=== PATIENT | male | born 1950 | race Caucasian/White ===

== ENCOUNTER 2017-12-12 09:12 | Emergency (ER) | payer MEDICARE, BC ==
--- NOTE | 2017-12-12 10:03 | RAD ---
Indication: Right knee pain and injury. 4 views of the right knee demonstrates no fracture. Soft tissue swelling superficial to the patella is noted consistent with superficial patellar bursitis. Calcification is noted superficial to the patella. IMPRESSION: Likely soft tissue swelling superficial to the patella consistent with superficial patellar bursitis.
--- NOTE | 2017-12-12 10:20 | ED ---
Lower Extremity - HPI Summary HPI Summary: 67 male presents to ED with complaints of right knee pain and difficulty lifting right lower extremity after a fall the he sustained just JIG [employer]PER[employer] while out walking to his barn. States he slipped and fell and his knee was bent and twisted behind him. States he heard a pop. Has since had pain with weight bearing and a deformity noted on top of knee. Denies any significant pain when at rest. Has not taken any medications. Has had previous injury in the past 30+ years to the same knee. Denies any bruising. Denies PMHx other than HTN. No other back, neck or other extremity pain. Did not hit head. NO back or neck pain. - History of Current Complaint Chief Complaint: EDExtremityLower Stated Complaint: FALL Time Seen by Provider: 12/12/17 09:19 Hx Obtained From: Patient Mechanism Of Injury: Fall From A Standing Position, Twisted Onset of Pain: Immediate, Post Accident Onset/Duration: Still Present Severity Initially: Moderate Severity Currently: Moderate Pain Intensity: 9 Pain Scale Used: 0-10 Numeric Timing: Constant Location: Is Discrete @ - right knee Character Of Pain: Aching, Spasmodic, Unable To Describe Associated Signs And Symptoms: Positive: Swelling - "Deformity", Knee Pain - right Aggravating Factor(s): Standing, Ambulation, Weight Bearing Alleviating Factor(s): Rest Able to Bear Weight: No - not without weakness and pain Legs: 1 - pain and deformity - Allergies/Home Medications Allergies/Adverse Reactions: Allergies Allergy/AdvReac Type Severity Reaction Status Date / Time No Known Allergies Allergy Verified 07/21/17 12:59 PMH/Surg Hx/FS Hx/Imm Hx Endocrine/Hematology History: Denies: Hx Diabetes Cardiovascular History: Reports: Hx Hypertension Denies: Hx Pacemaker/ICD Respiratory History: Denies: Hx Asthma Sensory History: Denies: Hx Hearing Aid Psychiatric History: Denies: Hx Panic Disorder - Cancer History Cancer Type, Location and Year: PROSTATE - Surgical History Surgery Procedure, Year, and Place: n/a - Immunization History Immunizations Up to Date: Yes Infectious Disease History: No Infectious Disease History: Denies: Traveled Outside the [place] in Last 30 Days - Family History Known Family History: Positive: Hypertension - Social History Alcohol Use: None Substance Use Type: Reports: None Smoking Status (MU): Unknown if Ever Smoked Review of Systems Constitutional: Negative Cardiovascular: Negative Respiratory: Negative Positive: Arthralgia, Myalgia, Decreased ROM Skin: Negative Positive: Weakness - when lifting right lower extremity All Other Systems Reviewed And Are Negative: Yes Physical Exam Triage Information Reviewed: Yes Vital Signs On Initial Exam: Initial Vitals Temp Pulse Resp BP Pulse Ox 98 F 55 16 157/110 97 12/12/17 09:16 12/12/17 09:16 12/12/17 09:16 12/12/17 09:16 12/12/17 09:16 elevated BP noted, improved throughout stay Vital Signs Reviewed: Yes Appearance: Positive: Well-Appearing, No Pain Distress, Well-Nourished Skin: Positive: Warm, Skin Color Reflects Adequate Perfusion, Dry. Negative: Cold, Numb, Diaphoretic, Pale, Cold Injury Head/Face: Positive: Normal Head/Face Inspection Eyes: Positive: Normal Neck: Positive: Supple, Nontender Respiratory/Lung Sounds: Positive: Clear to Auscultation, Breath Sounds Present. Negative: Rales, Rhonchi, Wheezes Cardiovascular: Positive: Normal, RRR, Pulses are Symmetrical in both Upper and Lower Extremities. Negative: Murmur, Rub Abdomen Description: Positive: Nontender, Soft Musculoskeletal: Positive: Interruption @ - superior aspect of patella, Abnormal @ - with flexion of right lower extremity at hip, with deformity noted at superior aspect of right patella, indentation noted strength slightly diminished at quadricep of right LE, Pain @ - minimal when at rest, increases with ambulation/weight bearing of right knee, Other - deformity noted at superior aspect of patella with indentation and patella is not fully stabilized when palpated, although is intact and is not dislocated. no obvious edema or bruising. rest of MSK exam normal and without injury. strength/rom intact rest of MSK. Neurological: Positive: Normal, Sensory/Motor Intact, Alert, Oriented to Person Place, Time, Unable to Assess Gait - due to injury Diagnostics - Vital Signs Vital Signs Temp Pulse Resp BP Pulse Ox 12/12/17 09:16 98 F 55 16 157/110 97 - Laboratory Lab Statement: Any lab studies that have been ordered have been reviewed, and results considered in the medical decision making process. - Radiology right knee Xray Interpretation: Positive (See Comments) - Likely soft tissue swelling superficial to the patella consistent with superficial patellar bursitis. Radiology Interpretation Completed By: Radiologist - CT right knee CT Interpretation: Positive (See Comments) - No definite fracture is identified. Calcification along the quadriceps tendon and infrapatellar tendon are intact. There is suggestion of a tear of the quadriceps tendon near its patellar attachment age of which is undetermined. No definite joint effusion is noted. CT Interpretation Completed By: Radiologist Re-Evaluation - Re-Evaluation First Eval Re-Evaluation Time: 11:15 Change: Unchanged - still feeling fine, does not want pain managment Second Eval Re-Evaluation Time: 12:37 Change: Unchanged - still feels fine. updated on plan after consult wt Dr Padilla. ready to be d/c Lower Extremity Course/Dx - Course Course Of Treatment: xray and Ct obained showing probable quadricep tendon rupture and based on physical exam. Patient was not in any significant pain and did not want medication at this time. Attempted to consult Dr Padilla at 11: 10am returned and came up to consult patient in ED at 12:00pm. Patient given knee immobilizer and crutches. RICE and NSAID's, muscle relaxer. Follow up with Ortho. Aware of worsening signs and symptoms to watch out for. No other concerns at this time. - Diagnoses Differential Diagnosis/HQI/PQRI: Positive: Dislocation, Fracture (Closed), Sprain, Strain, Other - tendon rupture, quadricep tear Provider Diagnoses: Rupture of right quadriceps tendon - Physician Notifications Discussed Care Of Patient With: Dr Padilla Time Discussed With Above Provider: 11:15 Instructed by Provider To: Will See In ED - attempted to go to surgery today , however unable so will follow up in office with Dr Padilla on Friday Discharge - Discharge Plan Condition: Good Disposition: HOME Prescriptions: Cyclobenzaprine TAB* [Flexeril 10 MG TAB*] 5 mg PO BEDTIME PRN #6 tab PRN Reason: Spasms Patient Education Materials: Knee Immobilizer (ED), Tendon Repair (DC) Referrals: Yolanda Carrion MD [Primary Care Provider] - Kentrell Padilla MD [Medical Doctor] - Additional Instructions: Please follow up with Orthopedics for further evaluation and treatment, call to make an appointment. Keep knee immobilizer on and use crutches. Refrain from weight bearing. Recommend use of ibuprofen for pain and inflammation. Muscle relaxers as needed for any spasms. Follow up with PCP as well. Any new or worsening symptoms please seek medical attention promptly.
--- NOTE | 2017-12-12 11:10 | RAD ---
Indication: Right knee injury, on ability to where bear weight. CT of the right knee was obtained in the axial plane. Coronal and sagittal reconstructed images were obtained. The distal femur and proximal tibia demonstrates no evidence of fracture. The patella demonstrates no fracture. There is dense calcification superficial to the patella which is well-corticated and likely represents sequela of old injury. Small calcifications are noted in the superficial soft tissues. There is discontinuity of the quadriceps tendon to the superior aspect of the patella. There is some small focus of air in the soft tissue just adjacent to the patella. The possibility of a quadriceps tendon tear should be considered. Infrapatellar tendon is intact. No significant joint effusion is noted although soft tissue swelling is noted superficial to the patella. IMPRESSION: No definite fracture is identified. Calcification along the quadriceps tendon and infrapatellar tendon are intact. There is suggestion of a tear of the quadriceps tendon near its patellar attachment age of which is undetermined. No definite joint effusion is noted.
[2017-12-12 12:56] VITALS: BP 135/84
--- NOTE | 2017-12-12 21:32 | CONS ---
CONSULTATION REPORT: DATE OF CONSULT: 12/12/17 REASON FOR CONSULT: Right knee injury. 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 The patient was outside at 9 a.m., he slipped and fell. The patient states that his right lower extremity went under his left lower extremity. The patient fell to the ground. He could not stand up on his own. His knee was not stable at all. Eventually, the patient's helped him into a car and the patient was brought by automobile to the ER at [facility]. The patient has no prior history of pain of that right knee. He does do some work on his knees. PAST MEDICAL HISTORY: Hypertension, prostate cancer. PAST SURGICAL HISTORY: None. MEDICATIONS: 1. Diuretic, name unknown by patient. 2. Calcium channel nba, name unknown by patient. The patient is not aware of the names. ALLERGIES: No known drug allergies. SOCIAL HISTORY: The patient does not smoke tobacco. PRIMARY CARE PHYSICIAN: Dr. Carrion in [place]. REVIEW OF SYSTEMS: No headache, nausea, vomiting, chest pain, heart palpitations, or shortness of breath. No abdominal pain. No right lower extremity numbness or tingling. No other joint pain. No other injuries sustained in the fall. PHYSICAL EXAM: Vital Signs: At 12:57 p.m. on 12/12/17 are temperature 100.1 degrees Fahrenheit, pulse 101, blood pressure 135/84, oxygen saturation 96% on room air. No acute distress, alert, and oriented, appropriate mood and affect, appropriate dress and hygiene, well coordinated bilateral upper and lower extremities. Right knee exam shows some prominence of the prepatellar bursa and some clear callus overlying into. There is a minimal amount of soft tissue swelling about the prepatellar bursa. There is more soft tissue swelling centered about the proximal pole of his patella. No ecchymosis. No skin compromise. Palpation of the distal quadriceps tendon and the patella reveals a clear full- thickness defect in the quadriceps tendon just prior to its insertion site. I can palpate from skin directly to quadriceps indicating a clear significant defect of tendon. The patient has no ability to do a straight leg raise or to actively extend the knee. Neurovascularly, intact distally. Only minimal tenderness to palpation about the distal end of the quadriceps tendon. DIAGNOSTIC STUDIES: Imaging: I reviewed x-rays of the patient's right knee obtained in the emergency department. They demonstrate no fracture. There was a calcification or bone fragment, present just superficial to the distal end of the patella, likely calcification consistent with long time prepatellar bursitis. CT scan of the right knee obtained also on the day of consultation reveals clear full-thickness tear in the quadriceps tendon with some minimal retraction and small calcification superficial of the patella. ASSESSMENT: Right distal quadriceps tendon tear, rupture. PLAN: 1. Discussed with the patient and his , recommended surgical management and timing of recovery. We also discussed some technical details of the operation. 2. While the patient has been n.p.o. since last night, I spoke with the operating room and there is no time available to perform surgery this afternoon. Therefore, we will do it as is typically are, electively as an outpatient. 3. The patient will be given a knee immobilizer and crutches. He needs to be partial weightbearing in that knee immobilizer. 4. The patient will follow up with me in clinic next Friday afternoon or Friday, which will be 12/15/17 or 12/16/17. 5. We will order an MRI scan when we see the patient in clinic with urgent priority for preoperative planning. We were unable to get the patient an MRI scan today. 6. The patient knows that he will need preoperative clearance by his medical doctor and I told him and his to reach out to the medical doctor today to obtain that. The patient was just seen last week for a physical and so perhaps another clinic visit with the primary care physician will not be needed. 7. The patient can take Tylenol or an NSAID for discomfort. [id number]/[facility] #: [id number] [facility] HOSPITALRosales
== END 2017-12-12 12:57 | disposition home or self-care (01) ==
LOC: ED 09:12
DX: S76.111A Strain of right quadriceps muscle, fascia and tendon, initial encounter (principal); I10 Essential (primary) hypertension; C61 Malignant neoplasm of prostate; W01.0XXA Fall on same level from slipping, tripping and stumbling without subsequent striking against object, initial encounter; Y93.01 Activity, walking, marching and hiking; Y92.71 Barn as the place of occurrence of the external cause
CPT/HCPCS: 99282

== ENCOUNTER 2017-12-19 10:41 | Day surgery (SDC) | payer MEDICARE, BC ==
[~2017-12-19 10:41] MED LIST: Buffered Lidocaine 0.9% SYRIN* 5 ML/SYR SYRINGE INTRADERM ONE; Famotidine IV* 10 MG/ML 2 ML (20 mg) IV ONE; Midazolam* 1 MG/ML 5 ML VIAL (5 MG) ONE; ceFAZolin 2 GM in NS 0.9% 100 ml IVPB ONE; fentaNYL* 50 MCG/ML 2 ML VIAL (100 MCG VIAL) ONE
[2017-12-19] MEDS ORDERED: ceFAZolin 2 GM PREMIX (*) 2 GM/50 ML BAG IVPB ONE (11:02)
[2017-12-19] MEDS ORDERED: Famotidine IV* 10 MG/ML 2 ML (20 mg) ONE (11:02)
[2017-12-19] MEDS ORDERED: Buffered Lidocaine 0.9% SYRIN* 5 ML/SYR SYRINGE ONE (11:02)
[2017-12-19] MEDS ORDERED: Bupivacaine 0.5% SDV PF* 10-30ML VIAL ONE (12:43)
[2017-12-19] MEDS ORDERED: Ondansetron INJ* 2 MG/ML VIAL ONE (12:43)
[2017-12-19] MEDS ORDERED: Ketorolac INJ* 30 MG/ML 1 ML VIAL ONE (12:43)
[2017-12-19] MEDS ORDERED: Lidocaine 2% PF * 5 ML VIAL ONE (12:43)
[2017-12-19] MEDS ORDERED: Dexamethasone IV* 4 MG/ML 1 ML (4 MG) ONE (12:43)
[2017-12-19] MEDS ORDERED: Propofol* 10 MG/ML 20 ML BTL IV PUSH ONE ×2 (12:43→12:56)
[2017-12-19] MEDS ORDERED: Succinylcholine* 20 MG/ML 10 ML VIAL ONE (12:43)
[2017-12-19] MEDS ORDERED: fentaNYL* 50 MCG/ML 2 ML VIAL (100 MCG VIAL) ONE (12:47)
[2017-12-19] MEDS ORDERED: HYDROmorphone INJ* 1 MG/ML CARPUJECT SYRINGE ONE (13:42)
[2017-12-19] MEDS ORDERED: oxyCODONE TAB* 5 MG TAB PO PRN (13:44)
[2017-12-19] MEDS ORDERED: Acetaminophen TAB* 325 MG PO PRN (13:44)
[2017-12-19] MEDS ORDERED: DiMENhydriNATE IV* 50 MG/ML VIAL IV PUSH PRN (13:44)
[2017-12-19] MEDS ORDERED: Naloxone* 0.4 MG/ML 1 ML VIAL IV PRN (13:44)
[2017-12-19] MEDS ORDERED: Acetaminophen IV 1GM/100ML * 100 ML ONE (14:20)
[2017-12-19] MEDS ORDERED: HYDROmorphone INJ* 2 MG/ML CARPUJECT SYRINGE ONE (14:36)
[2017-12-19] MEDS: HYDROmorphone INJ* 1 MG/ML CARPUJECT SYRINGE IV PRN ×3 (14:37→14:55)
[2017-12-19] MEDS ORDERED: oxyCODONE TAB* 5 MG TAB ONE (14:58)
[2017-12-19 15:58] VITALS: BP 155/86
--- NOTE | 2017-12-22 03:16 | OP ---
DATE OF OPERATION: 12/19/17 - [facility] DATE OF : 48 SURGEON: Kentrell Padilla MD PROGRAMMING SPECIALIST: KASANDRA Warren. A PA was required for the length of the procedure for positioning, retraction, assistance with instrumentation, and closure. ANESTHESIOLOGIST: Dr. Daphnie Carver. ANESTHESIA: General anesthesia. PRE-OP DIAGNOSIS: Right distal quadriceps tear. POST-OP DIAGNOSES: 1. Right distal quadriceps tendon tear. 2. 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 OPERATIVE PROCEDURE: 1. Right open distal quadriceps tendon repair. 2. Removal of bony or calcified mass versus tophaceous material, right prepatellar bursa. IV FLUIDS: 1500 cc crystalloid. ANTIBIOTIC: 2 g Ancef IV. TOURNIQUET TIME: 65 minutes at 300 mmHg. Skin to skin time: 65 minutes. SPECIMEN: We removed a calcified or bony or tophaceous mass about the prepatellar bursa. Sent to Pathology. IMPLANTS: None. We did use FiberWire #5 suture for the main part of the repair. COMPLICATIONS: None. ESTIMATED BLOOD LOSS: Minimal. 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 His right lower extremity fell under his left lower extremity as the patient fell to the ground. The patient was unable to stand up or walk on his own. He was brought to the emergency department where I evaluated him the same day and diagnosed him with a right distal quadriceps tendon tear. The patient was given a knee immobilizer and crutches and told to follow up with me in clinic where I saw him and performed a history and physical. Imaging was supplemented with an MRI scan I obtained to confirm the diagnosis. The patient was noted to have a calcification or bony fragment just superficial to the distal end of the patella in the vicinity of the prepatellar bursa. I attributed this possibility to longtime prepatellar bursitis. Discussed with the patient risks and potential complications of procedure including bleeding, infection, nerve or blood vessel injury, tendon re-rupture, pain, arthritis. We discussed postoperative course and the requirement of a knee brace and crutches over that time. This was important for the patient as the patient will be limited in how he can return to his work in the postoperative period. DESCRIPTION OF PROCEDURE: In the preoperative holding, the patient signed an operative consent. Operative extremity was marked in preoperative holding. The patient was taken back to the operating room and placed supine on the operating room table, sedated and intubated. Tourniquet was placed around the left proximal thigh. A footrest was placed to hold the knee in 30 degrees of flexion. The right lower extremity was prepped with ChloraPrep including the foot. Draping performed. Examination of the patient's right great toe revealed a clear tophaceous deposit at the interphalangeal joint of the great toe. We noticed similar lesions about the fingers and about the olecranon bursa on the right side. A surgical time-out performed. Esmarch applied and tourniquet elevated to 300 mmHg. I made a midline anterior longitudinal skin incision. Continued dissection down to the extensor mechanism. The patient clearly had some tophaceous like material about the proximal aspect of the patellar tendon. I encountered the loose body or inches of bony body appreciated on preoperative imaging. I removed it. This was sent for pathology in formalin. I identified the distal quadriceps tendon rupture. There was still a sleeve of tendon attached to the patella. The quadriceps tendon proximal to the tear was quite bulky. The muscle about the quadriceps was very well enhanced and very intricately linked, both superficial and deep to the underlying tendon. There were significant tears of the lateral and medial retinaculum as well. Irrigation. I first prepared the patella. I debrided the proximal pole of patella with a curette, rongeur, and then a round-tip drill. I left the superficial and intact quadriceps tendon and periosteal fibers in place anticipating that I would incorporate them into my repair later. I used a 2.0 mm drill bit to drill 3 tunnels. I drilled from proximal to distal. I made 1 to 2 nicks in the patellar tendon where the drill bit exited. I placed passing stitches, 2.0 in size through each tunnel. I next directed my attention to the quadriceps. I freshened up the distal tip with a nice rongeur. I had removed some hematoma that lay over the quadriceps superficially, but what remained was all tendon and muscles more intricately opposed than normally. I placed 2 stitches using Sabino type stitches with #5 FiberWire. I then used the passing stitches to place these FiberWire #5 stitches through the patella. With the knee fully extended, I tied 2 knots distally. That was after I had used a curved hemostat to bring the sutures to the location of the medial most and lateral most tunnel exits distally. I then supplemented the main repair with multiple additional [id number] stitches using Ethibond 0 sutures. I placed those in the site of the medial and lateral retinacular tears. The medial retinaculum was entirely repairable. Part of the lateral retinaculum was more central. However, there was too much gaping and the tissue was too poor quality more laterally toward the lateral retinaculum to be closed with stitches. I next placed stitches with sphlbc-ji-trial form using Ethibond 0 suture between the repaired tendon and the sleeves of tendon and periosteum still attached to the proximal aspect of the patella. This nicely supplemented the repair and I finished that off with a running stitch between repaired tendon and sleeve of tissue on the patella using a Vicryl 0 suture. We also placed [id number] stitches using Vicryl 2-0 suture in the patellar tendon to close the longitudinal incisions, x3. We had made few more out of work distally. We had also closed some tissue superficial to the patella and in the vicinity of the prepatellar bursa where the bony fragment had been taken out earlier. Irrigation. We next closed the subcutaneous tissue with buried simple stitches using Vicryl 2-0 suture. Closure of skin with ryan. Xeroform, 4x4s, ABDs, sterile Webril. Tourniquet was dropped. The knee was placed in a knee brace and locked in full extension. A cooling unit was applied to the knee. It should be mentioned that prior to closure of the subcutaneous tissue, I performed a gravity stress test. The knee flexed comfortably to 30 degrees of flexion. The patient was extubated and brought to the PACU. Postoperatively, the patient was given Percocet for pain control, aspirin for DVT prophylaxis and Keflex for infection prophylaxis. The patient will follow up with me approximately 2 weeks postoperatively. I will have him begin physical therapy at that point 2 weeks postoperatively according to my protocol. [id number]/[facility] #: [id number] MTDD
== END 2017-12-19 16:06 | disposition home or self-care (01) ==
LOC: OR 10:41
PROVIDERS: ATTEND Orthopaedic Surgery
DX: S76.111D Strain of right quadriceps muscle, fascia and tendon, subsequent encounter (principal); M1A.3 Chronic gout due to renal impairment; I10 Essential (primary) hypertension; Z85.46 Personal history of malignant neoplasm of prostate
CPT/HCPCS: A9270-GY; J0330; J0690; J1100; J1170; J1885; J2250; J2405; J2704; J3010

== ENCOUNTER 2018-01-27 17:37 | Inpatient (IN) | payer MEDICARE, BC ==
--- OUTSIDE RECORDS SUMMARY | 2018-01-27 17:54 | XMS REPORT ---
:1950 External Reference #:[id number] Author Organization [employer] Address [address] [address] Phone [phone] Care Team Providers Name Role Phone Yolanda Carrion MD Primary Care Physician Unavailable Payers Type Date Identification Numbers Payment Provider Subscriber Medicare Primary Effective: Policy Number: Medicare Ariana Underwood 2017 [id number] PayID: [id number] [address] [place] [address] Medigap Part B Effective: 2017 Policy Number: [facility] Ariana Underwood [id number] PayID: [id number] [address] [place] [address] Problems Date Description Provider Status Onset: 01/06/2018 Strain of right quadriceps muscle, Kentrell Padilla MD Active fascia and tendon, subs Family History Date Family Member(s) Problem(s) Comments General No Current Problems Social History Type Date Description Comments Lives With Spouse Occupation [employer] E[employer]H Use Denies alcohol use Smoking Patient is a former smoker Smoking Patient is a former smoker Quit 42 years ago Exercise Type/Frequency Exercises regularly Allergies, Adverse Reactions, Alerts Date Description Reaction Status Severity Comments 12/16/2017 NKDA active Medications Medication Date Status Form Strength Qnty SIG Indications Ordering Provider Percocet 12/19/ Active Tablets 5-325mg 30tabs 1 - 2 tabs 2017 by mouth Valerie, every 4 - 6 MD hours as needed for pain. Aspirin Ec 12/19/ Active Tablets DR 325mg 30tabs take 1 tab 2017 by mouth Valerie, every day x MD 14 days. with food. Keflex 12/19/ Active Capsules 500mg 15caps take 1 tab 2017 by mouth 3 Valerie, times a day x 7 days until finished. Walker 12/16/ Active Misc x one [id number] Kentrell García 2017 MD Valerie Triamterene/ / Active Capsules 37.5-25mg 1 by mouth Unknown Hydrochlorot 0000 every day hiazide Nifedipine / Active Capsules 10mg Unknown 0000 B12 Fast 0000/ Active Tablets 5000mcg sublingual Unknown Dissolve 0000 Dispers daily Vital Signs Date Vital Result Comment 01/06/2018 Heart Rate 88 /min BP Systolic 110 mmHg BP Diastolic 64 mmHg Body Temperature 100.0 F Pain Level 0 12/16/2017 Heart Rate 107 /min BP Systolic 138 mmHg BP Diastolic 70 mmHg Respiratory Rate 16 /min Body Temperature 98.5 F Pain Level 2 Results Test Date Test Result H/L Range Note Laboratory test 12/19/2017 Surgical Pathology SEE RESULT BELOW 1 finding 1 SEE RESULT BELOW Name: ARIANA UNDERWOOD : [address]: Kentrell Padilla MD Acct: [id number] Unit: [id number] AGE: 67 Location: OR Re12/19/17 SEX: M Status: DEP MARTHA SPEC: [id number] MEENU: 12/19/17-[address] [facility] [address]: Kentrell Padilla MD REQ: [id number] RECD: 12/19/17 STATUS: SOUT _ ORDERED: David, LEVEL 3 FINAL DIAGNOSIS Right patella, excision: -- Benign bone, cartilage, and tendinous tissue, compatible with osteocartilaginous body. PRE-OPERATIVE DIAGNOSIS Quadriceps tendon tear right leg GROSS DESCRIPTION The specimen is received in formalin labeled, Right Bone Mass Right Patella, and consists of a 3.8 x 2.2 by up to 0.9 cm saavedra-white ovoid shaggy bone fragment with moderate adherent saavedra-white fibrous tissue. Supervisor Inspection Room sections, one cassette following decalcification. MICROSCOPIC DESCRIPTION Signed (signature on file) Kaylin Calix MD 1006 END OF REPORT DEPARTMENT OF PATHOLOGY, [address] [place] [address] Cheo Ovalle M.D. Director [facility] # [id number] Procedures Date CPT Code Description Status 12/19/2017 12051 Suture Of Quadriceps Or Hamstring Muscle Repair;Primary Completed 12/19/2017 17720 Suture Of Quadriceps Or Hamstring Muscle Repair;Primary Completed Encounters Type Date Location Provider CPT E/M Dx Office Visit 12/16/2017 [facility] Kentrell Padilla, [id number] S76.111D 2:15p [facility] Office Visit 12/12/2017 [facility] Kentrell Padilla, 96554 [id number] 1:53p [facility] Plan of Care Future Appointment(s):02/03/2018 11:15 am - Kentrell Pad[facility]/06/2018 - Kentrell Padilla, [id number] Strain of right quadriceps muscle, fascia and tendon, subs
[2018-01-27] MEDS ORDERED: Iohexol 350* (CONTRAST) 500 ML MDV IV ONE (19:21)
[2018-01-27] MEDS ORDERED: Enoxaparin(*) 80 MG/0.8 ML SYR SUBCUT ONE (20:07)
--- NOTE | 2018-01-27 20:08 | RAD ---
HISTORY: Elevated d-dimer, immobilization COMPARISONS: None TECHNIQUE: Multiple contiguous axial CT scans of the chest were obtained after the administration of nonionic intravenous contrast, timed to the pulmonary arterial phase of contrast enhancement.. Coronal and sagittal multiplanar reformations are also submitted for review. FINDINGS: NECK AND THYROID: The lower neck and thyroid are unremarkable. CHEST WALL: There is no lower cervical, axillary, or supraclavicular lymphadenopathy by size criteria. HEART AND PERICARDIUM: The heart is unremarkable. AORTA AND PULMONARY VASCULATURE: There are multiple pulmonary arterial filling defects within the right main pulmonary artery and the lobar branches on the right consistent with multiple pulmonary emboli. MEDIASTINUM: There is no mediastinal lymphadenopathy by size criteria. EVAN: There is no hilar lymphadenopathy by size criteria. AIRWAY AND ESOPHAGUS: There is bronchiectasis of the right lower lobe. LUNG PARENCHYMA: There is interlobular septal thickening of the right lower lobe. PLEURA: There is a small to moderate partially loculated right pleural effusion UPPER ABDOMEN: The upper abdomen is unremarkable. BONES AND SOFT TISSUES: Degenerative changes are noted along the spine. OTHER: None. IMPRESSION: 1. MULTIPLE PULMONARY EMBOLI WITHIN THE RIGHT PULMONARY ARTERY AND THE LOBAR BRANCHES. 2. FIBROTIC CHANGES OF THE RIGHT LOWER LUNG WITH BRONCHIECTASIS AND A PARTIALLY LOCULATED RIGHT PLEURAL EFFUSION. PRELIMINARY FINDINGS WERE DISCUSSED WITH JOSEP HERRERA IN THE EMERGENCY DEPARTMENT AT APPROXIMATELY 8:04 PM ON JANUARY 27, 2018.
--- NOTE | 2018-01-27 20:14 | ED ---
Shortness of Breath - HPI Summary HPI Summary: Patient sent from urgent care and ED for abnormal labs and imaging. Chief complaint cough 10 days. CC Chest x-ray positive for pneumonia. Elevated d- dimer. History of rt quadracep surgery 12/19/17, and 5 weeks of subsequent immobilization. Denies fever, sore throat, CP, sob, N/V/D, abdomen pain, change in urinary BM. Med HX is prostate cancer with completion of treatment in September 2017, HTN. No anti-coag. - History of Current Complaint Chief Complaint: EDShortnessOfBreath Time Seen by Provider: 01/27/18 19:02 Hx Obtained From: Patient Onset/Duration: Gradual Onset Timing: Constant Current Severity: Mild Associated Signs & Symptoms: Cough (Productive) - Risk Factors Pulmonary Embolism: Bedrest, Recent Surgery Cardiac: Hypertension - Allergy/Home Medications Allergies/Adverse Reactions: Allergies Allergy/AdvReac Type Severity Reaction Status Date / Time No Known Allergies Allergy Verified 01/27/18 17:42 Home Medications: Home Medications Cyanocobalamin TAB* [Vitamin B12 TAB*] 500 mcg PO DAILY 01/27/18 [History Confirmed 01/27/18] NIFEdipine ER TAB* [Procardia Xl TAB*] 30 mg PO DAILY 01/27/18 [History Confirmed 01/27/18] Ranitidine TAB (NF) [Zantac TAB (NF)] 150 mg PO BID 01/27/18 [History Confirmed 01/27/18] Triamterene/HCTZ 37.5-25 MG* [Dyazide CAP*] 1 cap PO DAILY 01/27/18 [History Confirmed 01/27/18] PMH/Surg Hx/FS Hx/Imm Hx Endocrine/Hematology History: Denies: Hx Diabetes Cardiovascular History: Reports: Hx Hypertension Denies: Hx Pacemaker/ICD, Other Cardiovascular Problems/Disorders Respiratory History: Denies: Hx Asthma Sensory History: Reports: Hx Contacts or Glasses - glasses Denies: Hx Hearing Aid Opthamlomology History: Reports: Hx Contacts or Glasses - glasses Psychiatric History: Denies: Hx Panic Disorder - Cancer History Cancer Type, Location and Year: prostate Hx Chemotherapy: Yes - Surgical History Surgery Procedure, Year, and Place: rt knee surgery Hx Anesthesia Reactions: No Infectious Disease History: No Infectious Disease History: Denies: Traveled Outside the [place] in Last 30 Days - Family History Known Family History: Positive: Hypertension - Social History Alcohol Use: Occasionally Alcohol Amount: 3-4 per week Substance Use Type: Reports: None Smoking Status (MU): Never Smoked Tobacco Amount Used/How Often: 20 cigs per week for 4 years Review of Systems Constitutional: Negative Eyes: Negative ENT: Negative Cardiovascular: Negative Positive: Shortness Of Breath, Cough Gastrointestinal: Negative Genitourinary: Negative Musculoskeletal: Negative Skin: Negative Neurological: Negative Psychological: Normal All Other Systems Reviewed And Are Negative: Yes Physical Exam Triage Information Reviewed: Yes Vital Signs On Initial Exam: Initial Vitals Temp Pulse Resp BP Pulse Ox 98.2 F 95 14 108/90 98 01/27/18 17:43 01/27/18 17:43 01/27/18 17:43 01/27/18 17:43 01/27/18 17:43 Vital Signs Reviewed: Yes Appearance: Positive: Well-Appearing Skin: Positive: Warm Head/Face: Positive: Normal Head/Face Inspection Eyes: Positive: Normal Neck: Positive: Supple Respiratory/Lung Sounds: Positive: Decreased Breath Sounds - rt lower lobe Cardiovascular: Positive: Normal Abdomen Description: Positive: Nontender Musculoskeletal: Positive: Normal Neurological: Positive: Normal Psychiatric: Positive: Normal AVPU Assessment: Alert - Cecilia Coma Scale Best Eye Response: 4 - Spontaneous Best Motor Response: 6 - Obeys Commands Best Verbal Response: 5 - Oriented Coma Scale Total: 15 Diagnostics - Vital Signs Vital Signs Temp Pulse Resp BP Pulse Ox 01/27/18 17:43 98.2 F 95 14 108/90 98 - Laboratory Lab Results: Lab Results 01/27/18 Range/Units 18:43 Lactic Acid 1.5 (0.5-2.0) mmol/L Lab Statement: Any lab studies that have been ordered have been reviewed, and results considered in the medical decision making process. Re-Evaluation - Re-Evaluation 1 Re-Evaluation Time: 22:33 Change: Unchanged Comment: Patient vital signs remained stable. Course/Dx - Diagnoses Provider Diagnoses: Pulmonary embolism on right, Pneumonia - Physician Notifications Discussed Care of Patient With: Hamida Kilpatrick Time Discussed With Above Provider: 20:52 Instructed by Provider To: Admit As Inpatient Discharge - Sign-Out/Discharge Documenting (check all that apply): Discharge/Admit/Transfer - Discharge Plan Condition: Stable Disposition: ADMITTED TO [facility] Referrals: Yolanda Carrion MD [Primary Care Provider] - - Billing Disposition and Condition Condition: STABLE Disposition: [facility]
[2018-01-27] MEDS ORDERED: Piperacillin/Tazobac ADVAN(*) 3.375 GM in NS 0.9% 100 ML* 100 ML IVPB ONE (20:23)
[2018-01-27] MEDS ORDERED: Azithromycin IV(*) 500 MG in NS 0.9% 250 ML* 250 ML IVPB ONE (20:23)
[2018-01-27] MEDS ORDERED: Al Hydrox/Mg Hydrox/Simet LIQ* 30 ML UDC PO PRN (23:52)
[2018-01-27] MEDS ORDERED: Ondansetron INJ* 2 MG/ML VIAL IV PRN (23:52)
[2018-01-27] MEDS ORDERED: Acetaminophen TAB* 325 MG PO PRN (23:52)
[2018-01-28] MEDS: NS 0.9% 1000 ML* 1,000 ML IV SCH ×3 (01:53→22:35)
--- NOTE | 2018-01-28 02:49 | HP ---
CC: Dr. Carrion * HISTORY AND PHYSICAL: DATE OF ADMISSION: 01/27/18 PROVIDER: Neena Christine NP PRIMARY CARE PROVIDER: Dr. Carrion. ATTENDING PHYSICIAN WHILE IN THE HOSPITAL: Dr. Hamida Kilpatrick * (dictated by Neena Christine NP). CHIEF COMPLAINT: 1. Cough. 2. Abnormal lab work. HISTORY OF PRESENT ILLNESS: Mr. Del Rio is a 68-year-old gentleman who carries a past medical history of hypertension, acid reflux, and prostate cancer which he completed treatment in September 2017, who presented to the emergency room after having abnormal lab work. He was seen by his physician for a cough 10 days and weakness. The patient reports that he had recent right quadriceps surgery on 12/19/17 for a ruptured quadriceps tendon. He reports that approximately 10 days ago he developed a cough and some rib pain, subsequently had muscle spasms x48 hours which subsided. After that he had a productive cough with hemoptysis and decreased appetite. The patient states that he is nauseated and also was having some weakness when ambulating. He denies any palpitations. Denies any chest pain. Denies any shortness of breath. He denies any fever or chills. Denies any urinary frequency or urgency. He denies any abdominal pain. Due to the patient's abnormal blood work, he was sent to the emergency room for further evaluation. While in the emergency room , he had a CTA of the chest which showed a pulmonary embolism. Given this condition, we were asked to evaluate for admission. PAST MEDICAL HISTORY: Significant for: 1. Hypertension. 2. Acid reflux. 3. Prostate cancer, treatment was completed in September. PAST SURGICAL HISTORY: Quadriceps tendon repair on 12/19/17. MEDICATIONS: Home medications: 1. Vitamin B12. 2. Procardia 30 mg p.o. daily. 3. Ranitidine 150 mg b.i.d. 4. Dyazide (triamterene/hydrochlorothiazide) 37.5/25 mg p.o. daily. ALLERGIES TO MEDICATIONS: No known drug allergies. FAMILY HISTORY: Denies any history of coronary artery disease, diabetes, or cancer within the family. SOCIAL HISTORY: Denies any tobacco use. Denies drug use. He does report occasional alcohol use. He is and lives with his . Surrogate decision maker in the event he is unable to make his own decisions is his , Teodora, her phone number is [phone]. REVIEW OF SYSTEMS: There is no documented fever. He does report that he has had approximately 25 pound weight loss since his quadriceps tendon repair. He states that the majority of the weight loss has been over the past 10 days. There is no double vision. No ear drainage. Denies any rhinorrhea. Denies any sore throat. Denies any chest pain. Denies any orthopnea or nocturnal dyspnea. He denies any shortness of breath. He does report a productive cough with bloody sputum. Denies any vomiting. He does report nausea. He reports he has had nausea x10 days. Denies any dysuria or urinary frequency. He denies any loss of consciousness, pruritus, or skin ulcerations. Denies any visual complaints. Denies any difficulty swallowing. Denies any arthralgias or myalgias. Denies any skin rashes or lesions. Denies any depression or anxiety. He denies having any blood in his stool as well. PHYSICAL EXAMINATION GENERAL: At this time, Mr. Del Rio is a 68-year-old male who appears fatigued, resting on the stretcher in the emergency room. He does not appear to be in any acute distress. VITAL SIGNS: As follows: Blood pressure 122/85, heart rate is 83, respirations 21, O2 saturation is 97%, temperature on admission was 98.2. HEENT: Head is atraumatic, normocephalic. Eyes: EOMs are intact. Sclerae anicteric and not pale. Oral mucosa appeared to be moist. NECK: Supple. LUNGS: Clear to auscultation bilaterally. No wheezes, rales, or rhonchi. CARDIAC: S1 and S2. Irregular rate, but he is in a sinus rhythm. No murmurs, rubs, or gallops. ABDOMEN: Soft and nontender. Bowel sounds are present x4. EXTREMITIES: Pulses are +2, pedal pulses +2 bilaterally. He is able to move all 4 extremities. He does have a knee brace intact to his right lower leg. NEUROLOGIC: He is alert and oriented x3. Speech is clear. There is no focal deficits. SKIN: Intact. DIAGNOSTIC STUDIES AND LABORATORY DATA: WBCs were 14.0, hemoglobin was 12.9, hematocrit was 38, platelet count was 784 which is elevated from his baseline which on 12/17/17 was 281. INR was 1.38. D-dimer was greater than 1050. Sodium was 135, potassium 3.9, chloride 96, carbon dioxide was 23, anion gap was 16, BUN was 18, creatinine 0.90, lactic acid was 1.5, glucose 152. ASTs were 42, ALTs were 41. C-reactive protein was 154.71, BNP was 35, procalcitonin was 0.2. CTA of the chest, radiologist's impression: 1. Multiple pulmonary emboli within the right pulmonary artery and the lobar branches. 2. Fibrotic changes in the right lower lung with bronchial atelectasis and a partially loculated right pleural effusion. ASSESSMENT AND PLAN: Mr. Del Rio is a 68-year-old male who presented to the emergency room today after being seen by his primary care provider and found to have abnormal lab work. He subsequently underwent a CTA of the chest, which showed pulmonary embolism in the right pulmonary artery. He will be admitted under observation for: 1. Pulmonary embolism. We will start him on Lovenox 1 mg/kg q.12 hours. I will get a Doppler of bilateral lower extremities. I will also order a transthoracic echocardiogram for the morning to rule out any thrombus within the heart. 2. Possible right lower lobe pneumonia. CT of the chest does show partially loculated pleural effusion on the right. Given his mildly elevated white count of 14,000 and thrombocytosis with a platelet count of 784, I will start him on Levaquin 500 mg p.o. x7 days. 3. Hypertension. I will continue on his triamterene/hydrochlorothiazide 37.5/ 25 mg and his Procardia 30 mg p.o. daily. 4. Thrombocytosis. This could be related to acute phase reaction to infection. I will repeat a CBC in the a.m. 5. FEN. We will place him on a heart-healthy caffeine okay diet. 6. Code status: He is a full code. 7. DVT prophylaxis: He will be on Lovenox q.12 hours. 8. Disposition: He will be placed inpatient under observation. TIME SPENT: Time spent on this admission was approximately 60 minutes, greater than half that time was spent [id number] with the patient obtaining my history and physical, the other half the time was spent going over my plan of care and implementing my plan of care. I have discussed this with my attending Dr. Hamida Kilpatrick and she is in agreement with my plan. NEENA CHRISTINE, SHAKIRA [id number]/[facility] #: [id number] DAVID
[2018-01-28] MEDS: Omeprazole CAP* 20 MG PO SCH (05:51)
[2018-01-28 06:06] LABS: ABS Basophils 0.1 10^3/ul (0-0.2); ABS Eosinophils 0.1 10^3/ul (0-0.6); ABS Lymphocytes 1.1 10^3/ul (1.0-4.8); ABS Monocytes 0.8 10^3/ul (0-0.8); ABS Neutrophils 6.6 10^3/ul (1.5-7.7); ABS Nucleated RBC 0 10^3/ul; Eosinophil % 1.6 % (0-6); Hematocrit 33 % (42-52); Hemoglobin 11.2 g/dl (14.0-18.0); Lymphocyte % 12.1 % (25-47); Mean Corpuscular HGB Conc 34 g/dl (31-36); Mean Corpuscular Hemoglobin 31 pg (27-31); Mean Corpuscular Volume 93 fL (80-94); Mean Platelet Volume 7.7 um3 (7.4-10.4); Nucleated Red Blood Cells % 0; Platelet Count 562 10^3/ul (150-450); Red Blood Count 3.55 10^6/ul (4.0-5.4); Red Cell Distribution Width 15 % (10.5-15); White Blood Count 8.7 10^3/ul (3.5-10.8)
[2018-01-28 06:22] LABS: EGFR Non-African American 76.7 (>60)
[2018-01-28] MEDS ORDERED: Triamterene/HCTZ 37.5-25 MG* CAP PO SCH (09:00)
--- NOTE | 2018-01-28 09:40 | RAD ---
INDICATION: Pain and swelling. History of multiple pulmonary emboli COMPARISON: CTA chest January 27, 2018 TECHNIQUE: Duplex interrogation of both lower extremities was performed. FINDINGS: Deep veins: The common femoral, great saphenous, profunda femoris, proximal, mid, and distal deep femoral, popliteal, posterior tibial, and peroneal veins were interrogated. There is bilateral deep venous thrombosis. DVT extends from the common femoral vein through the tibial vessels bilaterally. There is additional fundus hemorrhage involvement on the left Superficial veins: There are no findings of superficial thrombophlebitis. Popliteal fossa:There is no evidence of a popliteal cyst. Soft tissues:There are no soft tissue abnormalities. IMPRESSION: EXTENSIVE, BILATERAL, DEEP VENOUS THROMBOSIS.
[2018-01-28] MEDS: Cyanocobalamin TAB* 500 MCG PO SCH (10:19)
[2018-01-28] MEDS: Levofloxacin TAB* 500 MG PO SCH (10:19)
[2018-01-28] MEDS: NIFEdipine ER TAB* 30 MG PO SCH (10:19)
[2018-01-28] MEDS: Enoxaparin(*) 80 MG/0.8 ML SYR SUBCUT SCH ×2 (10:20→20:26)
[2018-01-28] MEDS ORDERED: Potassium Chlor TAB* 20 MEQ TAB.ER PO STA (10:33)
[2018-01-28] MEDS ORDERED: Potassium Chloride LIQUID* 20 MEQ PACKET PO STA (10:42)
--- NOTE | 2018-01-28 13:23 | ECHO ---
Patient: ARIANA UNDERWOOD [facility] Rec#: [id number] : 1950 Date: 01/28/2018 Age: 68y Height: 185 cm / 72.8 in Weight: 83.9 kg / 184.9 lbs Sex: M BSA: 2.1 Room#: [facility] Admit Date#: 01/28/2018 Type: Inpatient Referring: Neena Christine Reading: Analisa Benitez MD Anatomy Teacher: Pamela Vlaerio RN RDCS CC: Yolanda Carrion MD Transthoracic Echocardiogram Indication: Pulmonary emboli BP: 98/65 HR: 96 Rhythm: NSR with PACs Findings History: HTN, GERD, prostate cancer, recent right quadricep repair 12/19/2017 Technical Comments: The study quality is fair. Left Ventricle: The left ventricular chamber size is normal. Mild concentric left ventricular hypertrophy is observed. There is a focal wall motion abnormality present.The apex is relatively hypokinetic, the septum is dysynchronous. The estimated ejection fraction is 45-50%. Abnormal left ventricular diastolic filling is observed, consistent with impaired relaxation. Left Atrium: The left atrial chamber size is normal. Right Ventricle: The right ventricular cavity size is normal. The right ventricular global systolic function is low normal.Respiratory variation of filling noted on 4 chamber view and on this view cavity diameter intermitantly small. Right Atrium: The right atrial cavity size is normal. Aortic Valve: The aortic valve is trileaflet. The aortic valve leaflets are mildly thickened. Systolic excursion of the right coronary cusp is reduced. There is aortic annular calcification. There is no evidence of aortic regurgitation. There is mild aortic stenosis. The mean gradient of the aortic valve is 8.2 mmHg. The peak instantaneous gradient of the aortic valve is 14.2 mmHg. The aortic valve area, by peak velocities, is calculated at 1.6 cm2. The aortic valve area, by VTI's, is calculated at 1.7 cm2. Mitral Valve: The mitral valve leaflets are mildly thickened. There is mild mitral regurgitation. The mitral regurgitant jet is posteriorly directed. There is no evidence of mitral stenosis. Tricuspid Valve: The tricuspid valve leaflets are normal. There is mild tricuspid regurgitation. No pulmonary hypertension is noted. There is no tricuspid stenosis. Pulmonic Valve: The pulmonic valve appears normal. There is a trace pulmonic regurgitation. There is no pulmonic stenosis. Pericardium: There is no significant pericardial effusion. Aorta: There is mild dilatation of the ascending aorta. There is no dilatation of the aortic arch. There is moderate dilatation of the aortic root. Pulmonary Artery: The main pulmonary artery is not well visualized. Venous: The venous system is not well visualized. The inferior vena cava is not visualized. Conclusions Mild left ventricular hypertrophy. The apex is relatively hypokinetic, the septum is dysynchronous. The estimated ejection fraction is 45-50%. Abnormal left ventricular diastolic filling is observed, consistent with impaired relaxation. The right ventricular global systolic function is low normal. There is respiratory variation of filling noted on 4 chamber view and on this view cavity diameter intermitantly small. There is mild aortic stenosis: the mean gradient of the aortic valve is 8.2 mmHg. The aortic valve area, by VTI's, is calculated at 1.7 cm2. There is mild mitral regurgitation. There is mild tricuspid regurgitation. There is mild dilatation of the ascending aorta: 3.9 cm. No prior echo available to compare. Measurements Name Value Normal Range RVIDd (AP) 2D 3.4 cm (0.9 - 2.6) RVDdMajor (2D) 2.3 cm (2.2 - 4.4) RAd ISD 4CH 4.3 cm (3.4 - 4.9) RA (A4C)W 3.1 cm (2.9 - 4.6) IVSd (2D) 1.2 cm (0.6 - 1) LVPWd (2D) 1.2 cm (0.6 - 1) LVIDd (2D) 3.9 cm (3.6 - 5.4) LVIDs (2D) 3 cm - LV FS (2D) 23 % (25 - 45) Aortic Annulus 2.2 cm (1.4 - 2.6) Ao root diameter (2D) 4.2 cm (2.1 - 3.5) Ascending Ao 3.9 cm (2.1 - 3.4) Aortic arch 2.3 cm (1.8 - 3.4) LA dimension (AP) 2D 2.7 cm (2.3 - 3.8) LAd ISD 4CH 3.8 cm (2.9 - 5.3) LA ISD 4CH W 4 cm (2.5 - 4.5) Name Value Normal Range LA ESV SP 4CH (A/L) 33 ml - LA ESV SP 2CH (A/L) 43 ml - LA ESV BP (A/L) 39 ml - LA ESV BP (A/L) index 19 ml/m2 - LA ESV SP 4CH (MOD) 29 ml - LA ESV SP 2CH (MOD) 41 ml - Name Value Normal Range MV E-wave Vmax 0.46 m/sec - MV deceleration time 328 msec - MV A-wave Vmax 0.85 m/sec - MV E:A ratio 0.54 ratio - LV septal e' Vmax 0.06 m/sec - LV lateral e' Vmax 0.11 m/sec - LV E:e' septal ratio 7.7 ratio - LV E:e' lateral ratio 4.2 ratio - Name Value Normal Range AV Vmax 1.9 m/sec - AV VTI 29.6 cm - AV peak gradient 14.2 mmHg - AV mean gradient 8.2 mmHg - LVOT diameter 2.2 cm - LVOT Vmax 0.79 m/sec - LVOT VTI 13.3 cm - LVOT peak gradient 2.5 mmHg - LVOT mean gradient 1.3 mmHg - NANCY (continuity Vmax) 1.6 cm2 - NANCY (continuity VTI) 1.7 cm2 - DARBY Vmax 0.62 m/sec - Name Value Normal Range TR Vmax 2.5 m/sec - TR peak gradient 25 mmHg - RAP 8 mmHg - RVSP 33 mmHg - Name Value Normal Range PV Vmax 0.73 m/sec -
--- NOTE | 2018-01-28 18:14 | PN ---
Subjective Date of Service: 01/28/18 Interval History: Pt seen and examined. Meds and labs reviewed. Spoke with Dr. Carrion (Pt's PCP ) and discussed the results of echo. She requested if cardiology can consult which I agree is reasonable. Discussed case with Dr. Benitez and cardiology team will see pt tomorrow. In addition, Dr. Kenny will also be seeing pt on consultation. ROS: slight CP and SOB improved Denied CORONADO/dizziness, F/C, N/V, , increased cough, sputum production, abd pain, diarrhea, constipation, dysuria, myalgias, arthralgias, throat pain, and new skin lesions. The rest of the 14 point ROS are unremarkable. PHYSICAL EXAM: GEN APPEARANCE: Awake, not in acute distress HEENT: NC/AT, PERRLA, moist oral mucosa, (-) throat erythema NECK: Soft, supple, (-) cervical LAD, (-)JVD HEART: S1S2 WNL, RRR, No MRG CHEST: Bibasal crackles, GAE, No W/R/R ABD: Soft, ND/NT, NABS 4x Q EXT: No C/C/E SKIN: Warm to touch PSYCH: No active psychosis, hallucinations, depression, SI/HI Objective Active Medications: Acetaminophen (Tylenol Tab*) 650 mg PO Q4H PRN PRN Reason: FEVER/PAIN Al Hydrox/Mg Hydrox/Simethicone (Maalox Plus*) 30 ml PO Q6H PRN PRN Reason: INDIGESTION Cyanocobalamin (Vitamin B12 Tab*) 500 mcg PO DAILY [facility] Last Admin: 01/28/18 10:19 Dose: 500 mcg Enoxaparin Sodium (Lovenox(*)) 80 mg SUBCUT Q12H [facility] Last Admin: 01/28/18 10:20 Dose: 80 mg Sodium Chloride (Ns 0.9% 1000 Ml*) 1,000 mls @ 100 mls/hr IV PER RATE [facility] Last Admin: 01/28/18 12:25 Dose: 100 mls/hr Levofloxacin (Levaquin Tab*) 500 mg PO Q24H [facility] Stop: 02/03/18 09:01 Last Admin: 01/28/18 10:19 Dose: 500 mg Nifedipine (Procardia Xl Tab*) 30 mg PO DAILY [facility] Last Admin: 05/02/18 10:19 Dose: 30 mg Omeprazole (Prilosec Cap*) 20 mg PO DAILY@0600 [facility] Last Admin: 01/28/18 05:51 Dose: 20 mg Ondansetron HCl (Zofran Inj*) 4 mg IV Q4H PRN PRN Reason: NAUSEA/VOMITING Last Admin: 01/28/18 17:56 Dose: 4 mg Triamterene/HCTZ (Maxzide 75-50*) 0.25 tab PO DAILY [facility] Vital Signs - 8 hr 01/28/18 01/28/18 14:27 15:24 Temperature 98.1 F 98.5 F Pulse Rate 71 87 Respiratory 20 26 Rate Blood Pressure 111/79 123/84 (mmHg) O2 Sat by Pulse 98 99 Oximetry Oxygen Devices in Use Now: None Result Diagrams: 01/28/18 05:50 01/28/18 05:50 Additional Lab and Data: Lab Results 01/27/18 Range/Units 18:43 Lactic Acid 1.5 (0.5-2.0) mmol/L Microbiology and Other Data: Microbiology 01/28/18 14:51 Streptococcus pneumoniae Ag Screen - Final Urine Negative S. pneumo Antigen Assess/Plan/Problems-Billing Assessment: - Patient Problems (1) Pulmonary embolism Current Visit: Yes Status: Acute Code(s): I26.99 - OTHER PULMONARY EMBOLISM WITHOUT ACUTE COR PULMONALE SNOMED Code(s): 40539783 Comment: --Also with BL DVT --Continue full dose Lovenox --Likely due to Quadruceps surgical repair recently that led to decreased activity, however, carcinoma and hypercoagulable disorders may need to be ruled out given it's extent --Will await formal reccomendations from Cards and Pulmo --Consider D/C Levaquin in AM (2) HTN (hypertension) Current Visit: Yes Status: Acute Code(s): I10 - ESSENTIAL (PRIMARY) HYPERTENSION SNOMED Code(s): 35342879 Comment: --Continue current regimen (3) Thrombocytosis Current Visit: Yes Status: Acute Comment: --Likely elevated as an acute phase reactant? 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
--- NOTE | 2018-01-28 18:18 | PN ---
Progress Note - Progress Note Date of Service: 01/28/18 SOAP: Subjective: Called by patient's PCP regarding patient admission for PE. Patient is 5 weeks and 5 days s/p 12/19/17 R distal quadriceps tendon repair by me. Anticoagulated with ECASA 325 mg po bid x 2 weeks postop. History of prostate cancer. Not a routine procedure for anticoagulation postop. At ~ 2 week postop visit, patient seemed well without complaint of cough or SOB and seemed energetic, raring to go for return to work timetable. Admitted with PE by CTA and being worked up for pneumonia per Hospitalist note. Objective: Pt appears tired. In bed. R knee inc c/d/i Assessment: s/p recent R distal quad repair Admitted with PE Plan: - Continue postop PT protocol - Med manage of PE per Hospitalist, currently on Lovenox, and w/u as needed for pneumonia - f/u in clinic as scheduled ~ February 03, 2018 with me
--- NOTE | 2018-01-28 23:04 | CONS ---
CC: Dr. Yolanda Carrion, Hospitalist Service; Dr. Ruth, Radiation Oncology * CARDIOLOGY CONSULTATION: DATE OF CONSULT: 01/28/18 HOSPITALIST SERVICE: Dr. Yolanda Carrion. RADIATION ONCOLOGY: Dr. Ruth. REASON FOR CONSULT: Abnormal echo, concern that echo inconsistent with PE, asked to evaluate for possible coronary artery disease. HISTORY OF PRESENT ILLNESS: Mr. 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 At that time, he slipped and fell, and ruptured the right distal quadriceps tendon and underwent surgical repair of this on 12/21/17. Since that time, he has been in a brace and had to keep the legs straight and says he has been extremely inactive. Ten days ago, he developed a cough and he lost his appetite. The cough just would not go away, so he presented to the hospital yesterday and evaluation confirmed he has DVTs and pulmonary emboli, and he has been started on blood thinners with improvement in his cough. He has also been started on antibiotics. He denied any sputum production with this. He denied any swelling in the legs. He denied ever having in his whole life chest pain, pressure, heaviness; neck, jaw, or arm pain. The patient denies palpitations or racing of the heart. PAST MEDICAL HISTORY: 1. Prostate cancer, status post radiation therapy. 2. Hypertension. MEDICATIONS: Outpatient medications included: 1. Nifedipine ER 30 mg a day. 2. Vitamin B12. 3. Dyazide 1 tablet daily. 4. Zantac 150 b.i.d. Inpatient medications include: 1. Lovenox 80 mg b.i.d. 2. Procardia XL 30 mg a day. 3. Levofloxacin 500 mg q.24 hours. 4. Triamterene/hydrochlorothiazide 1 tablet a day. 5. Sodium chloride IV fluid running at 100 cc an hour. 6. Zofran p.r.n. 7. Prilosec 20 mg a day. 8. B12. 9. Maalox p.r.n. 10. Tylenol p.r.n. (He had 1 dose of piperacillin and Zithromax, 01/27/18). ALLERGIES: The patient has no known drug allergies. FAMILY HISTORY: The patient has a family history of coronary artery disease. His father had a heart attack in his 40s and subsequent bypass surgery. SOCIAL HISTORY: As above. 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 He smoked mildly and distantly. No history of alcohol abuse. 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 REVIEW OF SYSTEMS: Positive for the above coughing and anorexia. Negative for swelling in the legs, increase in abdominal girth, chest pain, pressure, heaviness, orthopnea, PND. No recent fevers, chills, or sweats. No production of the cough, and again admits to very low physical activity since his surgery. PHYSICAL EXAM: The patient is somewhat pale appearing, somewhat older gentleman , lying in bed at 40 degrees, appears comfortable. Vital Signs: He is 6 feet 1 inch, weighs 188 pounds with a BMI of 25. Currently, blood pressure 123/84, pulse is 87, oxygen saturation on room air 99%, and temperature 98.5. General Appearance: On exam, psychologically, pleasant and cooperative. Neurologically , awake, alert, and oriented to person, place, and time. Cranial nerves II through XII intact. Grossly normal sensory and motor function in the upper and lower extremities in the bed, gait not examined. Skin: Pale, off color. HEENT : Pupils are equal and round. Mucous membranes moderately moist. Neck: I did not appreciate distended JVP. Breath sounds were clear with good effort. No wheezes, rales, or rhonchi. No coughing. Coronary: S1, S2, regular without murmurs or rubs. Abdomen: A bit overweight, active bowel sounds. Soft , nontender. No appreciable hepatomegaly, masses, or bruits. Lower Extremities : His right lower extremity had extensive brace on. The incision over the left knee appears well healed and unremarkable, free of infection. The extremities do not appear swollen and they are symmetrical in size. He has a strong dorsalis pedal pulses that are equal bilaterally. DIAGNOSTIC STUDIES/LAB DATA: White count 8.7, hemoglobin 11.2, hematocrit 33 ( baseline hematocrit in November was 42 to 47), platelets 562 with increased monos. Sodium 136, potassium 3.0, chloride 98, bicarb 25, BUN 21, creatinine 0.97, glucose 111. PSA 1.096. Lactic acid 1.5. Echocardiogram from 01/28/18 showed mild left ventricular hypertrophy with dysychronous septal contractility and the apex is relatively hypokinetic with an ejection fraction of 45% to 50% and abnormal diastolic filling, the right ventricle showed respiratory variation with filling and systolic function in the lower range of normal, and small LV cavity diameter on apical views. There was mild aortic stenosis with a mean gradient of 8.2 mmHg and the aortic valve area calculated at 1.7 sq. cm. Mild mitral, mild tricuspid insufficiency, mild dilatation of the ascending aorta and PA pressure was estimated at 33 mmHg, normal. CT of the chest and thorax showed multiple pulmonary emboli in the right pulmonary artery, fibrolytic changes in the right lower lung with bronchiectasis and partially loculated right pleural effusion. Venous Doppler confirmed DVT, bilateral extensive. No EKG done on this admission. IMPRESSION AND PLAN: In conclusion, Mr. Del Rio is a 68-year-old gentleman admitted with 10 days of coughing and anorexia, found to have bilateral deep venous thrombosis as well as pulmonary emboli in the right lung. The patient has an echo showing abnormal septal wall motion and hypokinesis of the apex for which the hospitalist raised concerns about possible concomitant coronary artery disease. The patient's acute presentation is consistent with his pulmonary embolus with coughing. His right heart would be consistent with underfilled, which may be related to his anorexia. I would defer to Oncology and Radiation Oncology of his increased risk of clotting from prostate cancer post treatment in addition to the increased risk he has incurred from his recent surgery, brace, and significant decrease from his usual activity level. With respect to atherosclerotic risks, I will check a chest x-ray, I am electing not to check troponins as they are very likely elevated from his pulmonary emboli and would not records management analyst. I am also going to elect to look at lipids and he never had an EKG, so we got one and we can compare this with an EKG that is in our system from his primary care physician's office, , which was within limits of normal. I do not feel we need to urgently do any sort of urgent cath or stress test. Non- urgently, we could get a chemical stress test to follow up on atherosclerotic risk for this abnormal echo and family history. Other medical issues that could be contributing to his picture include his anemia, which could theoretically be from his surgery and/or pulmonary embolus, but guaiac'ing stools may be prudent as was initiating anticoagulation. The patient's pleural effusion could be due to his PE, but if this does not clear other etiologies should be considered. I am not sure why his potassium was so low today, but I agree with replacement, it is possible that it is related to his triamterene/hydrochlorothiazide, but as he uses this chronically, I am not sure why it is so low today, but optimizing electrolytes will be a benefit. Additional recommendations will be made pending the results of his EKG and lipid panels that have been sent. It is quite possible that the relative apical hypokinesis is the manifestation of changes from his pulmonary emboli and septal dysychrony. Echo findings do show respiratory variation of filling in the right ventricle and with septal dyskinesis and this can be seen with pulmonary emboli. One option would be to non-urgently get additional echo images looking at respiratory variation in the right ventricle with a respirometer, but if this is elected to be done, I would do it when he is improved clinically, is felt to be hydrated, electrolytes normalized, and this would be an opportunity to reevaluate the left ventricular function with some treatment of the pulmonary emboli as well. Consideration of evaluating for possible early diabetes or hyperglycemia could be made as this glucose was mildly elevated, although this is under metabolic stress from his pulmonary emboli. Thank you for allowing me to assist in this nice gentleman's care. [id number]/[facility] #: [id number] DAVID
[2018-01-29] MEDS: Omeprazole CAP* 20 MG PO SCH (05:28)
[2018-01-29 06:10] LABS: ABS Basophils 0 10^3/ul (0-0.2); ABS Eosinophils 0.1 10^3/ul (0-0.6); ABS Lymphocytes 0.9 10^3/ul (1.0-4.8); ABS Monocytes 0.6 10^3/ul (0-0.8); ABS Neutrophils 5.2 10^3/ul (1.5-7.7); ABS Nucleated RBC 0 10^3/ul; Eosinophil % 1.5 % (0-6); Hematocrit 31 % (42-52); Hemoglobin 10.6 g/dl (14.0-18.0); Lymphocyte % 13.1 % (25-47); Mean Corpuscular HGB Conc 34 g/dl (31-36); Mean Corpuscular Hemoglobin 32 pg (27-31); Mean Corpuscular Volume 94 fL (80-94); Mean Platelet Volume 7.7 um3 (7.4-10.4); Nucleated Red Blood Cells % 0; Platelet Count 459 10^3/ul (150-450); Red Blood Count 3.34 10^6/ul (4.0-5.4); Red Cell Distribution Width 15 % (10.5-15); White Blood Count 6.9 10^3/ul (3.5-10.8)
[2018-01-29 06:26] LABS: EGFR Non-African American 104.9 (>60)
[2018-01-29] MEDS: Enoxaparin(*) 80 MG/0.8 ML SYR SUBCUT SCH ×2 (08:42→19:31)
[2018-01-29] MEDS: NS 0.9% 1000 ML* 1,000 ML IV SCH ×2 (08:42→19:31)
[2018-01-29] MEDS: Triamterene/HCTZ 75-50 MG* TAB PO SCH (08:42)
[2018-01-29] MEDS: Cyanocobalamin TAB* 500 MCG PO SCH (08:42)
[2018-01-29] MEDS: Levofloxacin TAB* 500 MG PO SCH (08:42)
[2018-01-29] MEDS: NIFEdipine ER TAB* 30 MG PO SCH (08:42)
--- NOTE | 2018-01-29 17:03 | PN ---
Subjective Date of Service: 01/29/18 Interval History: Pt seen and examined. Meds and labs reviewed. ROS: Denied CORONADO/dizziness, F/C, N/V, CP, SOB, increased cough, sputum production , abd pain, diarrhea, constipation, dysuria, myalgias, arthralgias, throat pain , and new skin lesions. The rest of the 14 point ROS are unremarkable. PHYSICAL EXAM: GEN APPEARANCE: Awake, not in acute distress HEENT: NC/AT, PERRLA, moist oral mucosa, (-) throat erythema NECK: Soft, supple, (-) cervical LAD, (-)JVD HEART: S1S2 WNL, RRR, No MRG CHEST: CTA, BL, GAE, No W/R/R ABD: Soft, ND/NT, NABS 4x Q EXT: No C/C/E SKIN: Warm to touch PSYCH: No active psychosis, hallucinations, depression, SI/HI Objective Active Medications: Acetaminophen (Tylenol Tab*) 650 mg PO Q4H PRN PRN Reason: FEVER/PAIN Al Hydrox/Mg Hydrox/Simethicone (Maalox Plus*) 30 ml PO Q6H PRN PRN Reason: INDIGESTION Cyanocobalamin (Vitamin B12 Tab*) 500 mcg PO DAILY [facility] Last Admin: 01/29/18 08:42 Dose: 500 mcg Enoxaparin Sodium (Lovenox(*)) 80 mg SUBCUT Q12H [facility] Last Admin: 01/29/18 08:42 Dose: 80 mg Sodium Chloride (Ns 0.9% 1000 Ml*) 1,000 mls @ 100 mls/hr IV PER RATE [facility] Last Admin: 01/29/18 08:42 Dose: 100 mls/hr Levofloxacin (Levaquin Tab*) 500 mg PO Q24H [facility] Stop: 02/03/18 09:01 Last Admin: 01/29/18 08:42 Dose: 500 mg Nifedipine (Procardia Xl Tab*) 30 mg PO DAILY [facility] Last Admin: 01/29/18 08:42 Dose: 30 mg Omeprazole (Prilosec Cap*) 20 mg PO DAILY@0600 [facility] Last Admin: 01/29/18 05:28 Dose: 20 mg Ondansetron HCl (Zofran Inj*) 4 mg IV Q4H PRN PRN Reason: NAUSEA/VOMITING Last Admin: 01/28/18 17:56 Dose: 4 mg Triamterene/HCTZ (Maxzide 75-50*) 0.25 tab PO DAILY [facility] Last Admin: 01/29/18 08:42 Dose: 0.25 tab Vital Signs - 8 hr 01/29/18 01/29/18 01/29/18 11:16 14:08 16:11 Temperature 98.2 F 97.8 F 98.2 F Pulse Rate 92 81 96 Respiratory 24 20 18 Rate Blood Pressure 114/78 114/72 128/73 (mmHg) O2 Sat by Pulse 97 97 97 Oximetry Oxygen Devices in Use Now: None Result Diagrams: 01/29/18 05:42 01/29/18 05:42 Additional Lab and Data: Lab Results 01/27/18 Range/Units 18:43 Lactic Acid 1.5 (0.5-2.0) mmol/L Microbiology and Other Data: Microbiology 01/28/18 14:51 Streptococcus pneumoniae Ag Screen - Final Urine Negative S. pneumo Antigen Assess/Plan/Problems-Billing Assessment: - Patient Problems (1) Pulmonary embolism Current Visit: Yes Status: Acute Code(s): I26.99 - OTHER PULMONARY EMBOLISM WITHOUT ACUTE COR PULMONALE SNOMED Code(s): 41085888 Comment: --Also with BL DVT --Continue full dose Lovenox --Likely due to Quadruceps surgical repair recently that led to decreased activity, however, carcinoma and hypercoagulable disorders may need to be ruled out given it's extent --Pt does have history of prostate CA--Will recheck PSA to compare from previous --Will obtain the ff hypercoagulable W/U: Factor V Leiden, Prothrombin gene mutation, Protein C&S activity --Appreciate Cardiology input --Consider D/C Levaquin in AM (2) HTN (hypertension) Current Visit: Yes Status: Acute Code(s): I10 - ESSENTIAL (PRIMARY) HYPERTENSION SNOMED Code(s): 50697793 Comment: --Continue current regimen (3) Thrombocytosis Current Visit: Yes Status: Acute Comment: --Likely elevated as an acute phase reactant? --Denies smoking since the 1970s (4) Cardiac abnormality Current Visit: Yes Status: Acute Code(s): Q24.9 - CONGENITAL MALFORMATION OF HEART, UNSPECIFIED SNOMED Code(s): 58853256 Comment: --Per cards, wall motion abnormality likely due to PE --Will further perform cardiac W/U as outpatient when PE has been addressed-- will defer (5) DVT prophylaxis Current Visit: Yes Status: Acute Code(s): TLG4105 - SNOMED Code(s): 375940922 Comment: --On full dose Lovenox --Considering transitioning to DOACs in AM if insurance is ok, if not, place on coumadin--will touch base with care coordinators Status and Disposition: --As above
[2018-01-30] MEDS: Omeprazole CAP* 20 MG PO SCH (05:01)
[2018-01-30] MEDS: NS 0.9% 1000 ML* 1,000 ML IV SCH ×2 (05:02→14:43)
[2018-01-30] MEDS: Enoxaparin(*) 80 MG/0.8 ML SYR SUBCUT SCH (08:54)
[2018-01-30] MEDS: Cyanocobalamin TAB* 500 MCG PO SCH (08:54)
[2018-01-30] MEDS: Triamterene/HCTZ 75-50 MG* TAB PO SCH (08:54)
[2018-01-30] MEDS: Levofloxacin TAB* 500 MG PO SCH (08:54)
[2018-01-30] MEDS: NIFEdipine ER TAB* 30 MG PO SCH (08:54)
--- NOTE | 2018-01-30 16:34 | PN ---
Subjective Date of Service: 01/30/18 Interval History: Pt seen and examined. Meds and labs reviewed. Spoke with pt and at bedside ROS: Denied CORONADO/dizziness, F/C, N/V, CP, SOB, increased cough, sputum production , abd pain, diarrhea, constipation, dysuria, myalgias, arthralgias, throat pain , and new skin lesions. The rest of the 14 point ROS are unremarkable. PHYSICAL EXAM: GEN APPEARANCE: Awake, not in acute distress HEENT: NC/AT, PERRLA, moist oral mucosa, (-) throat erythema NECK: Soft, supple, (-) cervical LAD, (-)JVD HEART: S1S2 WNL, RRR, No MRG CHEST: CTA, BL, GAE, No W/R/R ABD: Soft, ND/NT, NABS 4x Q EXT: No C/C/E SKIN: Warm to touch PSYCH: No active psychosis, hallucinations, depression, SI/HI Objective Active Medications: Acetaminophen (Tylenol Tab*) 650 mg PO Q4H PRN PRN Reason: FEVER/PAIN Al Hydrox/Mg Hydrox/Simethicone (Maalox Plus*) 30 ml PO Q6H PRN PRN Reason: INDIGESTION Apixaban (Eliquis*) 10 mg PO BID [facility] Stop: 02/06/18 19:59 Cyanocobalamin (Vitamin B12 Tab*) 500 mcg PO DAILY [facility] Last Admin: 01/30/18 08:54 Dose: 500 mcg Sodium Chloride (Ns 0.9% 1000 Ml*) 1,000 mls @ 100 mls/hr IV PER RATE [facility] Last Admin: 01/30/18 14:43 Dose: 100 mls/hr Levofloxacin (Levaquin Tab*) 500 mg PO Q24H [facility] Stop: 02/03/18 09:01 Last Admin: 01/30/18 08:54 Dose: 500 mg Nifedipine (Procardia Xl Tab*) 30 mg PO DAILY [facility] Last Admin: 01/30/18 08:54 Dose: 30 mg Omeprazole (Prilosec Cap*) 20 mg PO DAILY@0600 [facility] Last Admin: 01/30/18 05:01 Dose: 20 mg Ondansetron HCl (Zofran Inj*) 4 mg IV Q4H PRN PRN Reason: NAUSEA/VOMITING Last Admin: 01/28/18 17:56 Dose: 4 mg Triamterene/HCTZ (Maxzide 75-50*) 0.25 tab PO DAILY [facility] Last Admin: 01/30/18 08:54 Dose: 0.25 tab Vital Signs - 8 hr 01/30/18 11:38 Temperature 97.2 F Pulse Rate 87 Respiratory 16 Rate Blood Pressure 115/72 (mmHg) O2 Sat by Pulse 99 Oximetry Oxygen Devices in Use Now: None Result Diagrams: 01/29/18 05:42 01/29/18 05:42 Additional Lab and Data: Lab Results 01/27/18 Range/Units 18:43 Lactic Acid 1.5 (0.5-2.0) mmol/L Microbiology and Other Data: Microbiology 01/28/18 14:51 Streptococcus pneumoniae Ag Screen - Final Urine Negative S. pneumo Antigen Assess/Plan/Problems-Billing Assessment: - Patient Problems (1) Pulmonary embolism Current Visit: Yes Status: Acute Code(s): I26.99 - OTHER PULMONARY EMBOLISM WITHOUT ACUTE COR PULMONALE SNOMED Code(s): 56390888 Comment: --Also with BL DVT --Will transition to [facility] and will observe overnight --Likely due to Quadruceps surgical repair recently that led to decreased activity, however, carcinoma and hypercoagulable disorders may need to be ruled out given it's extent --Pt does have history of prostate CA --Will obtain the ff hypercoagulable W/U: Factor V Leiden, Prothrombin gene mutation, Protein C&S activity --Appreciate Cardiology input --D/C'd Levaquin given consolidatin unlikely due to pneumonia (2) HTN (hypertension) Current Visit: Yes Status: Acute Code(s): I10 - ESSENTIAL (PRIMARY) HYPERTENSION SNOMED Code(s): 00173237 Comment: --Continue current regimen (3) Thrombocytosis Current Visit: Yes Status: Acute Comment: --Likely elevated as an acute phase reactant? --Denies smoking since the 1970s (4) Cardiac abnormality Current Visit: Yes Status: Acute Code(s): Q24.9 - CONGENITAL MALFORMATION OF HEART, UNSPECIFIED SNOMED Code(s): 83517878 Comment: --Per cards, wall motion abnormality likely due to PE --Will further perform cardiac W/U as outpatient when PE has been addressed-- will defer (5) DVT prophylaxis Current Visit: Yes Status: Acute Code(s): JPW4094 - SNOMED Code(s): 148193665 Comment: --On full dose Lovenox being transitioned to Eliquis --Pt set up with Eliquis and should be ready to go if remains stable with Eliquis in AM Status and Disposition: --As above
[2018-01-30] MEDS: Apixaban* 5 MG TAB PO SCH (19:48)
[2018-01-30] MEDS ORDERED: Apixaban* 5 MG TAB PO SCH (21:00)
[2018-01-31] MEDS: NS 0.9% 1000 ML* 1,000 ML IV SCH ×2 (01:43→11:59)
[2018-01-31 05:34] LABS: Hematocrit 27 % (42-52); Hemoglobin 9.6 g/dl (14.0-18.0); Mean Corpuscular HGB Conc 35 g/dl (31-36); Mean Corpuscular Hemoglobin 33 pg (27-31); Mean Corpuscular Volume 93 fL (80-94); Mean Platelet Volume 7.8 um3 (7.4-10.4); Platelet Count 356 10^3/ul (150-450); Red Blood Count 2.94 10^6/ul (4.0-5.4); Red Cell Distribution Width 15 % (10.5-15); White Blood Count 5.9 10^3/ul (3.5-10.8)
[2018-01-31 05:49] LABS: EGFR Non-African American 115.6 (>60)
[2018-01-31] MEDS: Omeprazole CAP* 20 MG PO SCH (05:58)
[2018-01-31] MEDS ORDERED: Potassium Chlor TAB* 20 MEQ TAB.ER PO ONE ×2 (07:14→07:56)
[2018-01-31] MEDS: Apixaban* 5 MG TAB PO SCH (07:46)
[2018-01-31] MEDS: NIFEdipine ER TAB* 30 MG PO SCH (07:46)
[2018-01-31] MEDS: Triamterene/HCTZ 75-50 MG* TAB PO SCH (07:46)
[2018-01-31] MEDS: Cyanocobalamin TAB* 500 MCG PO SCH (07:46)
[2018-01-31] MEDS ORDERED: Magnesium Sulfate 2 GM IV* 2 GM/50 ML BAG IVPB ONE (07:56)
[2018-01-31 12:21] LABS: EGFR Non-African American 121.8 (>60)
[2018-01-31 13:02] VITALS: BP 121/69
--- NOTE | 2018-02-01 01:04 | DS ---
CC: Yolanda Carrion MD; Dr. Ruth DISCHARGE SUMMARY: DATE OF ADMISSION: 01/29/18 DATE OF DISCHARGE: 01/31/18 PRIMARY CARE PROVIDER: Yolanda Carrion MD RADIATION ONCOLOGIST: Dr. Ruth. DISCHARGE DIAGNOSES: 1. Pulmonary embolism. 2. Deep venous thrombosis. 3. Thrombocytosis. 4. Hypokalemia. SECONDARY DIAGNOSES: 1. Hypertension. 2. Gastroesophageal reflux disease. 3. Stage IIA prostate cancer, status post radiation therapy treatment, completed in September. 4. Status post quadriceps tendon repair on 12/19/17. MEDICATION LIST: 1. Nifedipine ER 30 mg p.o. daily. 2. Vitamin B12 500 mcg p.o. daily. 3. Dyazide 37.5/25 mg 1 capsule p.o. daily. 4. Ranitidine 150 mg p.o. b.i.d. New medications: 1. Potassium chloride 20 mEq p.o. b.i.d. for 5 days. 2. Apixaban 10 mg p.o. twice a day for 6 days, then 5 mg twice a day. HOSPITAL COURSE: Mr. Del Rio is a 68-year-old male with a past medical history as stated above who p resented to the emergency room with complaints of cough and pleuritic chest pain. He was sent by his primary care provider to the emergency room for further evaluation and his lab tests included elevat ed D-dimer greater than 1050. The patient had a CTA of the chest that showed multiple pulmonary emboli within the right pulmonary a rtery and the lobar branches. Fibrotic changes of the right lower lung with bronchiectasis and a par tially loculated right pleural effusion. Venous lower extremity Doppler showed extensive bilateral D VT and a transthoracic echocardiogram showed ejection fraction of 45% to 50% with an apex that is rel atively hypokinetic and the septum is desynchronous. The right ventricular global systolic function is low normal with respiratory variation of filling. The patient was admitted to the telemetry floor and he was started on anticoagulation with heparin in itially. He was seen in consultation by Cardiology (Dr. Benitez) and her impression was that the patient prese nted with bilateral DVTs as well as pulmonary emboli in the right lung and she felt that the patient was at increased risk for clot from prostate cancer and in addition to increased risk that he has inc urred with his recent surgery, brace, and significant decrease from his usual activity level. She di d not feel that the patient required any urgent stress test or cardiac cath. She felt the outpatient he could get a chemical stress test to follow up atherosclerotic risk for his abnormal echo and his family history. She felt it was quite possible that the relative apical hypokinesis is a manifestati on of changes from his pulmonary emboli and . She felt that as outpatient when he is improved c linically, is hydrated with normal electrolytes, it will be a good opportunity to reevaluate the righ t ventricular function after he has been treated for his pulmonary emboli as well. So, I believe an echo with Cardiology in 4 to 6 weeks is indicated. The patient had improvement of his symptoms and is anxious for discharge. He was also seen by Dr. Monroy, who performed his quadriceps tendon repair and he states that the patient was on aspirin 325 m g twice a day for 2 weeks and that the procedure he had done was not a routine procedure that require d anticoagulation postop. Although the patient has a history of malignancy, he has stage IIA prostat e cancer that was treated with radiation therapy with curative intent. So, it is not completely madhu r if just his history of malignancy and this tendon repair are enough to explain his extensive DVT an d PE. Hypercoagulable workup including Factor V Leiden, protein C, protein S, protein gene mutation was sent and is pending at the time of this dictation and should be followed as outpatient. Depending on his primary care provider's opinion, I believe a referral to Hematology could also be useful. The patient discussed anticoagulation options with Dr. Mendoza and decision was made to treat him wi th Eliquis that the patient has tolerated well. He is medically stable for discharge at this time to follow up with Dr. Carrion next week. I believe at that point, his hypercoagulable workup results should be available. As described above, I also b elieve he would benefit of an echocardiogram in 4 to 6 weeks. While in the hospital, the patient also developed some diarrhea, likely the cause of his dehydration and hypokalemia and this is now improved. He is being discharged on 5 days of supplemental potassium . I believe this should be enough as his diarrhea is already improving and he is on Dyazide as outpa tient. His PCP should check his electrolytes as outpatient. PHYSICAL EXAMINATION: Vital Signs: Temperature 98.0, heart rate is 72, respiratory rate is 16, oxyg en saturation 96% on room air, blood pressure is 121/69. General: The patient is a pleasant gentlem an, sitting up in the bed, in no acute distress. CVS: Normal S1, S2. Regular rate and rhythm. Mandy st: Breath sounds present bilaterally with no added sounds. Neuro: He is alert and oriented x3. A ble to move all 4 extremities. DIET: Heart healthy diet. ACTIVITY: As tolerated. DISPOSITION: To home. STATUS IN THE HOSPITAL: Inpatient. Please keep in mind this is a summarized version of this patient's hospital stay. If you need more in formation, please feel free to call me at [phone] or please obtain the full medical records. TIME SPENT: Approximately 45 minutes were spent to complete this discharge. [id number]/CPS #: [id number]
[2018-02-02 20:32] LABS: Prothrombin 20210 Mutation Negative (Negative)
== END 2018-01-31 15:22 | disposition home or self-care (01) | DRG 176 ==
LOC: ED 17:37 → MEDTELE 01-28 01:00 → OBSVTOIN 01-29 09:45
PROVIDERS: ADMIT Hospitalist; ATTEND Internal Medicine
DX: I26.99 Other pulmonary embolism without acute cor pulmonale (principal); J90 Pleural effusion, not elsewhere classified; I82.413 Acute embolism and thrombosis of femoral vein, bilateral; I82.443 Acute embolism and thrombosis of tibial vein, bilateral; I10 Essential (primary) hypertension; J47.9 Bronchiectasis, uncomplicated; K21.9 Gastro-esophageal reflux disease without esophagitis; D47.3 Essential (hemorrhagic) thrombocythemia; D64.9 Anemia, unspecified; R40.2252 Coma scale, best verbal response, oriented, at arrival to emergency department; R40.2362 Coma scale, best motor response, obeys commands, at arrival to emergency department; R40.2142 Coma scale, eyes open, spontaneous, at arrival to emergency department; F17.200 Nicotine dependence, unspecified, uncomplicated; I77.810 Thoracic aortic ectasia; I08.3 Combined rheumatic disorders of mitral, aortic and tricuspid valves; Z92.21 Personal history of antineoplastic chemotherapy; Z82.49 Family history of ischemic heart disease and other diseases of the circulatory system; Z85.46 Personal history of malignant neoplasm of prostate; Z72.89 Other problems related to lifestyle; Z92.3 Personal history of irradiation; Q24.9 Congenital malformation of heart, unspecified; Z79.01 Long term (current) use of anticoagulants; Z91.81 History of falling; E87.6 Hypokalemia; E86.0 Dehydration; R19.7 Diarrhea, unspecified
CPT/HCPCS: 36415; 71046; 71275; 80048; 80053; 80061; 81240; 81241; 83605; 83735; 83880; 84145; 84153; 84154; 85025; 85027; 85303; 85306; 85379; 85610; 85730; 86140; 87899; 93005; 93306; 93970; 99284; A9270-GY; G0103; G0378; J0456; J1650; J2405; J2543; J3475; Q9967